=== PATIENT | female | born 1940 | race Caucasian/White ===

== ENCOUNTER → 2016-07-22 | Outpatient (CLI) | payer MEDICARE, BC ==
[~2016-07-22] MED LIST: ADVIL DPS200 MG PO; ASA325 MG PO; BENADRYL-DPS25 MG PO; CALTRATE 600 +1 EAC1 PO; CENTRUM SILVER1 EAC1 PO; COMPAZINE10 MG PO; DULCOLAX-DPS10 MG PR; EYLEA2 MG/0.05 OU; HYDROCODON-ACE1 EAC2 PO; HYDROCODON-ACE1 EAC4 PO; LOVENOX DP40 MG/0.4 SQ; MAALOX DPS30 ML PO; MILK OF MAGNESI10 ML PO; OMEGA-3 DPS1000 MG PO; PRESERVISION A1 EAC2 PO; PRILOSEC DPS20 MG PO; PROLIA60 MG/ML SQ; SENOKOT S1 TAB PO; SURFAK240 MG PO; SYSTANE LIQUID15 ML OU; TUMS DPS500 MG PO; TYLENOL DPS325 MG PO; TYLENOL EXTRA500 M1 PO; ULTRAM DPS50 MG PO; VITAMIN D1000 UNI1 PO
== END | disposition home or self-care (01) ==
LOC: RAD.S 10:35
DX: Z12.31 Encounter for screening mammogram for malignant neoplasm of breast (principal)